=== PATIENT | male | born 1990 | race Caucasian/White ===

== ENCOUNTER 2022-03-24 21:15 | Emergency (ER) | payer SELFPAY ==
[~2022-03-24] VITALS: Ht 172.7 cm; Wt 58.0 kg
[2022-03-24 21:47] VITALS: BP 123/82
[2022-03-24] MEDS ORDERED: TETANUS, DIPHTHERIA, PERTUSSIS VAC/PF 0.5ML (>10YR OLD) IM ONE (22:00)
[2022-03-24] MEDS ORDERED: LIDOCAINE HCL/EPINEPHRINE 1%-EPI 1:100,000 50 ML VIAL INFIL ONE (22:00)
[2022-03-24] MEDS ORDERED: LIDOCAINE HCL/EPINEPHRINE 1%-EPI 1:100,000 30 ML VIAL INFIL NR (23:00)
== END 2022-03-24 23:50 | disposition home or self-care (01) ==
LOC: ER 21:15
DX: S01.81XA Laceration without foreign body of other part of head, initial encounter (principal); F10.90 Alcohol use, unspecified, uncomplicated; Y90.9 Presence of alcohol in blood, level not specified; W01.10XA Fall on same level from slipping, tripping and stumbling with subsequent striking against unspecified object, initial encounter; Y93.01 Activity, walking, marching and hiking; Y92.39 Other specified sports and athletic area as the place of occurrence of the external cause
CPT/HCPCS: 12014; 70450; 90471; 90715; 99284; Z7610